=== PATIENT | male | born 1980 | race Asian ===

== ENCOUNTER 2020-10-30 02:40 | Emergency (ER) | payer BC ==
[~2020-10-30] VITALS: Ht 157.5 cm; Wt 68.0 kg
[~2020-10-30 02:40] MED LIST: CYCL10 PO; HYDACE5 PO; PROM25 PO
[2020-10-30] MEDS ORDERED: KETO10 PO (04:05)
[2020-10-30] MEDS ORDERED: CYCL10 PO (04:05)
== END 2020-10-30 05:08 | disposition home or self-care (01) ==
LOC: ER 02:40
DX: S39.012A Strain of muscle, fascia and tendon of lower back, initial encounter (principal); F17.200 Nicotine dependence, unspecified, uncomplicated; W18.09XA Striking against other object with subsequent fall, initial encounter; Y93.01 Activity, walking, marching and hiking; Y92.009 Unspecified place in unspecified non-institutional (private) residence as the place of occurrence of the external cause
CPT/HCPCS: 72100; 99284-25; A9270